=== PATIENT | female | born 1950 | race Two or more races ===

== ENCOUNTER 2017-09-13 07:54 | Outpatient (CLI) | payer OTHER ==
[~2017-09-13 07:54] MED LIST: FLONASE16 GM NS
== END 2017-09-13 07:56 | disposition home or self-care (01) ==
LOC: NUCLEAR 07:54
DX: I27.2 Other secondary pulmonary hypertension (principal); I11.9 Hypertensive heart disease without heart failure

== ENCOUNTER 2021-12-02 09:44 | Outpatient (CLI) | payer OTHER | END 2021-12-02 09:56 | disposition home or self-care (01) | LOC: EKG 09:44 | DX: H25.013 Cortical age-related cataract, bilateral (principal) ==

== ENCOUNTER → 2022-12-14 | Outpatient (CLI) | payer OTHER | END | disposition home or self-care (01) | LOC: TOM 07:08 | PROVIDERS: ATTEND Internal Medicine Cardiovascular Disease | DX: K72.00 Acute and subacute hepatic failure without coma (principal) ==

== ENCOUNTER 2023-01-05 07:09 | Outpatient (CLI) | payer OTHER | END 2023-01-05 07:30 | disposition home or self-care (01) | LOC: MRI 07:09 | DX: R74.01 Elevation of levels of liver transaminase levels (principal) | CPT/HCPCS: 74181 ==